=== PATIENT | female | born 1950 | race Caucasian/White ===

== ENCOUNTER → 2016-07-31 | Outpatient (CLI) | payer MEDICARE, OTHER ==
[~2016-07-31] MED LIST: ACETAMINOPHEN 325 MG TABLET PO PRN; ANAS1TAB3 PO; ASCO100072 PO; ATEN25TA PO; CALC-316 PO; CHOL20003 PO; CYAN1TAB39 PO; FENTANYL PF 100 MCG/2ML IV PRN; HYDROcodone/APAP 7.5-325MG/15ML UDC PO PRN; HYDROmorphone 1 MG/ML, 1ML IV PRN; HYDROmorphone 2 MG/ML, 1ML IVPush PRN; LACTATED RINGERS 1,000 ML IV SCH; LIDOCAINE 1%, 20ML ONE; MEPERIDINE/PF 25MG/0.5ML IVPush PRN; MIDAZOLAM 1 MG/ML, 2ML IV PRN; MULT-82 PO; OMEG300C PO; ONDANSETRON 2MG/ML, 2ML IVPush PRN; OXYcodone 5 MG/5 ML ORAL.SOL UDC PO PRN; OXYcodone/APAP 5/325MG TABLET PO PRN; POTA10TA11 PO; PROMETHAZINE 25 MG/ML, 1ML IV PRN; SCOPOLAMINE PATCH, 1.5MG PATCH.TD72 TD ONE; SODIUM BICARBONATE 4.2%, 5ML ONE; VITA100020 PO
== END | disposition home or self-care (01) ==
LOC: CFH 08:10
PROVIDERS: ATTEND Surgery
DX: N63 Unspecified lump in breast (principal); N64.89 Other specified disorders of breast
CPT/HCPCS: 19281; J3490

== ENCOUNTER → 2016-09-12 | Outpatient (CLI) | payer MEDICARE, OTHER ==
[~2016-09-12] MED LIST changes: -ACETAMINOPHEN 325 MG TABLET PO PRN; -FENTANYL PF 100 MCG/2ML IV PRN; -HYDROcodone/APAP 7.5-325MG/15ML UDC PO PRN; -HYDROmorphone 1 MG/ML, 1ML IV PRN; -HYDROmorphone 2 MG/ML, 1ML IVPush PRN; -LACTATED RINGERS 1,000 ML IV SCH; -LIDOCAINE 1%, 20ML ONE; -MEPERIDINE/PF 25MG/0.5ML IVPush PRN; -MIDAZOLAM 1 MG/ML, 2ML IV PRN; -ONDANSETRON 2MG/ML, 2ML IVPush PRN; -OXYcodone 5 MG/5 ML ORAL.SOL UDC PO PRN; -OXYcodone/APAP 5/325MG TABLET PO PRN; -PROMETHAZINE 25 MG/ML, 1ML IV PRN; -SCOPOLAMINE PATCH, 1.5MG PATCH.TD72 TD ONE; -SODIUM BICARBONATE 4.2%, 5ML ONE
== END | disposition home or self-care (01) ==
LOC: CFH 08:11
PROVIDERS: ATTEND Surgery
DX: N64.89 Other specified disorders of breast (principal); R92.8 Other abnormal and inconclusive findings on diagnostic imaging of breast; Z90.2 Acquired absence of lung [part of]; Z85.3 Personal history of malignant neoplasm of breast
CPT/HCPCS: G0206